=== PATIENT | female | born 1965 | race African-American/Black ===

== ENCOUNTER 2020-02-22 06:20 | Emergency (ER) | payer OTHER ==
[~2020-02-22] VITALS: Ht 175.3 cm; Wt 94.0 kg
[2020-02-22 06:22] VITALS: BP 127/60
[2020-02-22] MEDS ORDERED: KETOROLAC 15MG/ML VIAL IV ONE (07:15)
== END 2020-02-22 07:35 | disposition home or self-care (01) ==
LOC: ER 06:20
DX: M79.604 Pain in right leg (principal); Z98.890 Other specified postprocedural states; Z90.710 Acquired absence of both cervix and uterus; E03.9 Hypothyroidism, unspecified
CPT/HCPCS: 96374; 99283; J1885